=== PATIENT | male | born 1985 | race Caucasian/White ===

== ENCOUNTER 2024-03-05 13:47 | Emergency (ER) | payer OTHER ==
[2024-03-05 14:05] VITALS: BP 120/73; PULSE 84; RESP 18; TEMP 97.9; BMI 21.6
[2024-03-05] MEDS: DIPHTH,PERTUSS(ACELL),TET 0.5 ML DISP.SYRIN IM ONE (15:07)
[2024-03-05] MEDS ORDERED: DIPHTH,PERTUSS(ACELL),TET 0.5 ML DISP.SYRIN IM ONE (15:07)
== END 2024-03-05 15:11 | disposition home or self-care (01) ==
LOC: JERFT 13:47
PROC: 3E0234Z Introduction of Serum, Toxoid and Vaccine into Muscle, Percutaneous Approach (ICD-10-PCS; principal; 2024-03-05)
DX: S60.111A Contusion of right thumb with damage to nail, initial encounter (principal); W23.0XXA Caught, crushed, jammed, or pinched between moving objects, initial encounter
CPT/HCPCS: 73130-TC-RT-FY; 90471; 90715; 99284-25

== ENCOUNTER 2024-03-19 14:44 | Emergency (ER) | payer OTHER ==
[2024-03-19 15:07] VITALS: BP 122/73; PULSE 77; RESP 17; TEMP 98.7; BMI 21.6
[2024-03-19] MEDS ORDERED: BACITRACIN ZINC 15 GM TUBE TOPICAL OINTMENT ONE (15:48)
[2024-03-19] MEDS: BACITRACIN 0.9 GM PACKET TP ONE (15:49)
== END 2024-03-19 15:56 | disposition home or self-care (01) ==
LOC: JERFT 14:44
DX: S00.81XA Abrasion of other part of head, initial encounter (principal); W22.8XXA Striking against or struck by other objects, initial encounter
CPT/HCPCS: 99283-25